=== PATIENT | female | born 1995 | race Caucasian/White ===

== ENCOUNTER → 2021-04-25 | Day surgery (SDC) | payer OTHER | END | disposition home or self-care (01) | LOC: JRADUS-SUR 10:20 | PROVIDERS: ATTEND Physician Assistant Medical | PROC: BU18YZZ Fluoroscopy of Uterus and Fallopian Tubes using Other Contrast (ICD-10-PCS; principal; 2021-04-25) | DX: N97.9 Female infertility, unspecified (principal) | CPT/HCPCS: 36415; 58340; 74740-TC-FY; 76000-TC-FY; 76830-TC; 76856-TC; 84702 ==

== ENCOUNTER 2022-01-06 05:41 | Inpatient (IN) | payer OTHER ==
[2022-01-06] MEDS ORDERED: ELECTROLYTE-148 SOLN 500 ML IV ONE ×2 (06:10→07:10)
[2022-01-06 07:08] LABS: PHENCYCLIDINE,URINE NEGATIVE (NEGATIVE); URINE BENZODIAZEPINES NEGATIVE (NEGATIVE)
[2022-01-06 07:09] LABS: METHADONE, UR NEGATIVE (NEGATIVE); OPIATES, URI NEGATIVE (NEGATIVE); URINE AMPHETAMINES NEGATIVE (NEGATIVE); URINE BARBITURATES NEGATIVE (NEGATIVE)
[2022-01-06 07:10] LABS: COCAINE, UR NEGATIVE (NEGATIVE)
[2022-01-06] MEDS ORDERED: MAGNESIUM 4GM/H20 - 4 GM/100 ML IVPB IVPB ONE (07:20)
[2022-01-06] MEDS ORDERED: AMPICILLIN SODIUM 2 GM VIAL ONE (07:20)
[2022-01-06] MEDS ORDERED: BETAMET ACET/BETAMET NA PH 30 MG/5 ML VIAL ONE (07:20)
[2022-01-06] MEDS ORDERED: BETAMET ACET/BETAMET NA PH 30 MG/5 ML VIAL IM ONE (07:22)
[2022-01-06] MEDS ORDERED: AMPICILLIN - 2 GM in SODIUM CHLORIDE 100 ML IVPB ONE (07:23)
[2022-01-06] MEDS ORDERED: MAGNESIUM SULFATE 20GM/500ML - 500 ML IV SCH (07:30)
[2022-01-06] MEDS ORDERED: ELECTROLYTE-148 SOLN 1,000 ML IV SCH (07:30)
[2022-01-06] MEDS ORDERED: MAGNESIUM 4GM/H20 - 100 ML IVPB SCH (07:30)
[2022-01-06] MEDS ORDERED: MAGNESIUM 4GM/H20 - 4 GM/100 ML IVPB IVPB SCH (07:45)
[2022-01-06 08:31] LABS: URINE APPEARANCE CLEAR; URINE BILIRUBIN NEGATIVE (NEGATIVE); URINE COLOR YELLOW; URINE GLUCOSE (UA) NEGATIVE (NEGATIVE); URINE KETONE NEGATIVE (NEGATIVE)
[2022-01-06 08:32] VITALS: TEMP 98.2; BMI 38.2
[2022-01-06 08:32] LABS: URINE NITRITE NEGATIVE (NEGATIVE); URINE UROBILINOGEN 0.2 mg/dL (0.2-1.0)
[2022-01-06 08:33] LABS: URINE LEUK ESTERASE 2+ (NEGATIVE); URINE PROTEIN TRACE (NEGATIVE)
[2022-01-06 08:35] LABS: EPI CELLS 18 /uL (0-25.1); HYALINE CASTS 16 /uL (0-3.1); URINE BACTERIA 1439 /uL (0-1359); URINE RBC 17 /uL (0-23.9); URINE WBC 480 /uL (0-25.8)
[2022-01-06] MEDS ORDERED: MAGNESIUM SULFATE 20GM/500ML - 20 GM/500 ML INFUS.BAG IV SCH (08:45)
[2022-01-06 09:26] VITALS: BP 107/66; PULSE 91
== END 2022-01-06 08:30 | disposition short-term general hospital (02) | DRG 563 ==
LOC: JDEL 05:41 → JERBED 07:18 → JLDR 07:35
PROVIDERS: ADMIT Obstetrics & Gynecology; ATTEND Obstetrics & Gynecology
DX: O60.03 Preterm labor without delivery, third trimester (principal); Z3A.29 29 weeks gestation of pregnancy
CPT/HCPCS: 59025; 80307; 81003; C9803-CS; U0003; U0005

== ENCOUNTER 2023-12-10 18:06 | Emergency (ER) | payer OTHER ==
[2023-12-10 18:27] VITALS: BP 117/66; PULSE 86; RESP 16; TEMP 98.6; BMI 37.5
== END 2023-12-10 21:23 | disposition home or self-care (01) ==
LOC: JERFT 18:06
DX: M54.6 Pain in thoracic spine (principal); V49.50XA Passenger injured in collision with unspecified motor vehicles in traffic accident, initial encounter
CPT/HCPCS: 72070-TC-FY; 99283-25